=== PATIENT | male | born 1970 | race Caucasian/White ===

== ENCOUNTER 2017-12-07 22:55 | Emergency (ER) | payer OTHER ==
[~2017-12-07] VITALS: Ht 188 cm; Wt 93.0 kg
--- NOTE | ~2017-12-07 | EKG ---
[place] [address] [email or web address] [address] ELECTROCARDIOGRAM REPORT Name: CLARISSE FERNANDEZ [id number] Admission: 12/07/17 Attend Phys: Discharge: 12/08/17 Date of : 68 Report #: [id number] THIS REPORT FOR: //name// [facility] ED Test Date: 2017-12-07 Test Time: 23:20:28 Pat Name: CLARISSE FERNANDEZ Department: Room: Gender: [employer]: [facility] : 1970 Requested By: Zion Treadwell Order Number: [id number] MD: Suresh Nuñez Measurements Intervals [place] Rate: 83 P: 59 [place]: 170 QRS: 67 QRSD: 74 T: 62 QT: 347 QTc: 408 Interpretive Statements Sinus rhythm Normal tracing Compared to ECG 01/28/1996 15:46:00 No significant change was found Electronically Signed On 12-08-2017 8:38:38 CDT by Suresh Nuñez [email or web address] <ELECTRONICALLY SIGNED> By: Suresh Nuñez MD, [facility] 12/08/17 0838 2320 2320 Suresh Nuñez MD, FACC /EPI
[~2017-12-07 22:55] MED LIST: MECLIZINE 25 MG25 M1 PO
[2017-12-07 23:23] LABS: ABSOLUTE NEUTROPHILS 5.7 thou/uL (1.4-8.2); BASOPHILS 0.8 % (0.0-2.0); HEMOGLOBIN 13.5 gm/dL (14.0-18.0); LYMPHOCYTES 29.9 % (24.0-44.0); MCH 32.6 pg (26.0-34.0); MCHC 34.7 g/dL (28.0-37.0); MCV 94.1 fL (80.0-100.0); MONOCYTES 6.6 % (1.0-8.0); PLATELET COUNT 337 thou/uL (150-400); POLYS 60.7 % (36.0-66.0); RBC 4.15 mil/uL (4.50-6.00); RDW 12.9 % (10.5-14.5); WBC 9.4 thou/uL (4.0-11.0)
[2017-12-07 23:26] LABS: ANION GAP 11 mmol/L (7-16); BUN 29 mg/dL (7-18); CALCIUM 9.4 mg/dL (8.5-10.1); CHLORIDE 105 mmol/L (98-107); CO2 25 mmol/L (21-32); CREATININE 1.4 mg/dL (0.7-1.3); GLUCOSE 121 mg/dL (74-106); POTASSIUM 3.7 mmol/L (3.5-5.1); SODIUM 141 mmol/L (136-145)
[2017-12-07 23:35] LABS: TROPONIN-I <0.06 ng/mL (<0.06)
[2017-12-08 02:38] VITALS: BP 122/67
== END 2017-12-08 02:39 | disposition home or self-care (01) ==
LOC: ER 22:55
PROVIDERS: Emergency Medicine
DX: R55 Syncope and collapse (principal); Z91.013 Allergy to seafood; Z87.891 Personal history of nicotine dependence